=== PATIENT | male | born 1960 | race Hispanic/Latino ===

== ENCOUNTER 2020-12-05 09:43 | Inpatient (IN) | payer OTHER ==
[2020-12-05 10:16] LABS: #Eosinphils 0.1 thou/uL (0.0-0.7); #Lymphocytes 1.3 thou/uL (1.20-3.40); #Monocytes 0.5 thou/uL (0.11-0.59); #Neutrophils 5.2 thou/uL (1.40-6.50); %Basophils 0.2 % (0.0-1.0); %Eosinophils 1.3 % (0.0-10.0); %Lymphocytes 18.2 % (21.0-51.0); %Monocytes 6.3 % (0.0-10.0); Hemoglobin 15.5 g/dL (14.0-18.0); Mean Corpuscular HGB CONC 34.9 g/dL (32.0-36.0); Mean Corpuscular Hemoglobin 33.5 pg (27.0-31.0); Mean Platelet Volume 8.2 fL (7.4-10.4); Platelet Count 164 thou/uL (130-400); RBC Distribution Width 12.1 % (11.5-14.5); Red Blood Cell (RBC) Count 4.62 mill/uL (4.70-6.10); White Blood Cell (WBC) Count 7.1 thou/uL (4.8-10.8)
[2020-12-05] MEDS ORDERED: Aspirin Chewable 81 MG TAB ONE (10:19)
[2020-12-05] MEDS ORDERED: Nitroglycerin 2% Ointment 1 INCH/1 GM Packet ONE (10:19)
[2020-12-05 10:36] LABS: ALT (SGPT) 12 U/L (8-55); AST (SGOT) 18 U/L (5-34); Albumin 4.1 g/dL (3.4-4.8); Alkaline Phosphatase 97 U/L (40-110); Anion Gap 11 mmol/L (10-20); BUN (Urea Nitrogen) 17 mg/dL (8.4-25.7); CK (CPK) 170 U/L (30-200); Calc. Creatinine Clearance 0 mL/min (70-130); Calcium 9.1 mg/dL (7.8-10.44); Carbon Dioxide 26 mmol/L (23-31); Chloride 107 mmol/L (98-107); Globulin 2.3 g/dL (2.4-3.5); Glucose 106 mg/dL (80-115); Lipase 11 U/L (8-78); Potassium 3.8 mmol/L (3.5-5.1); Protein, Total 6.4 g/dL (5.8-8.1); Sodium 140 mmol/L (136-145)
[2020-12-05 10:58] LABS: CKMB 1.8 ng/mL (0-6.6)
[2020-12-05] MEDS ORDERED: Enoxaparin Sodium 40 MG/0.4 ML SYRINGE ONE (11:47)
[2020-12-05] MEDS ORDERED: Enoxaparin Sodium 30 MG/0.3 ML SYRINGE ONE (11:47)
[2020-12-05] MEDS ORDERED: hydrALAZINE 20 MG/ML VIAL SLOW IVP PRN (15:42)
[2020-12-05 15:46] LABS: Troponin I 1.345 ng/mL (< 0.028)
[2020-12-05] MEDS ORDERED: Amlodipine 5 MG TAB PO SCH (17:00)
[2020-12-05] MEDS ORDERED: FLU VACC QS2021-22(6MOS UP)/PF 60 MCG/0.5 ML SYRINGE IM ONE (17:00)
[2020-12-05] MEDS ORDERED: Communication Order-Pharmacy FS SCH (17:00)
[2020-12-05] MEDS: Nitroglycerin 2% Ointment 1 INCH/1 GM Packet TOP SCH (20:19)
[2020-12-05 20:20] LABS: SARS-CoV-2 PCR by NAA Not Detected (NotDetected)
[2020-12-05] MEDS ORDERED: Enoxaparin Sodium 80 MG/0.8 ML SYRINGE SC SCH (21:00)
[2020-12-05] MEDS ORDERED: Enoxaparin Sodium 60 MG/0.6 ML SYRINGE SC SCH (21:00)
[2020-12-06] MEDS ORDERED: Sodium Chloride 0.9% 1,000 ML IV SCH (06:00)
[2020-12-06 06:02] LABS: Cardiac Risk 4.7 (Less than 4.5)
[2020-12-06] MEDS ORDERED: Midazolam HCl 2 mg/2 ml Vial ONE (08:38)
[2020-12-06] MEDS ORDERED: Fentanyl 100 MCG/2 ML VIAL ONE (08:38)
[2020-12-06] MEDS ORDERED: Aspirin 325 mg Enteric Coated Tablet PO SCH (09:00)
[2020-12-06] MEDS ORDERED: Heparin 25,000 units/D5W 500 ML ONE (09:09)
[2020-12-06] MEDS ORDERED: Heparin 10,000 UNITS/ 10 ML VIAL ONE (09:09)
[2020-12-06] MEDS ORDERED: Albumin 5% 500 ML ONE (09:46)
[2020-12-06] MEDS ORDERED: Nitroglycerin 2% Ointment 1 INCH/1 GM Packet ONE (09:51)
[2020-12-06] MEDS ORDERED: Midazolam HCl 5 mg/5 ml Vial ONE (10:11)
[2020-12-06] MEDS ORDERED: Fentanyl 250 MCG/5 ML VIAL ONE (10:11)
[2020-12-06] MEDS ORDERED: Dexmedetomidine 200 MCG/2 ML VIAL ONE (10:11)
[2020-12-06] MEDS ORDERED: Heparin 10,000 UNITS/1 ML VIAL 30,000 UNITS in Sodium Chloride 0.9% 1,000 ML FS SCH (10:15)
[2020-12-06] MEDS ORDERED: Heparin 30,000 units/30 ml VIAL ONE (10:52)
[2020-12-06] MEDS ORDERED: Papaverine 60 MG/2 ML VIAL ONE (10:52)
[2020-12-06] MEDS ORDERED: Mannitol 12.5 GM/50 ML ONE (10:52)
[2020-12-06] MEDS ORDERED: Nitroglycerin 50 MG/250 ML BOT ONE (10:52)
[2020-12-06] MEDS ORDERED: Ondansetron PF 4 MG/2 ML Vial ONE (10:52)
[2020-12-06] MEDS ORDERED: Protamine Sulfate 250 MG/25 ML VIAL ONE (10:52)
[2020-12-06] MEDS ORDERED: PROPOFOL 200 MG/20 ML VIAL ONE (10:52)
[2020-12-06] MEDS ORDERED: Norepinephrine 4 MG/4 ML VIAL ONE (10:52)
[2020-12-06] MEDS ORDERED: Magnesium Sulfate 1 GM/2 ML VIAL ONE (10:52)
[2020-12-06] MEDS ORDERED: Potassium Chloride 60 MEQ/30 ML VIAL ONE (10:52)
[2020-12-06] MEDS ORDERED: Calcium Chloride 1 GM/10 ML Abboject SYRINGE ONE (10:52)
[2020-12-06] MEDS ORDERED: Lidocaine 1% PF 5 ML VIAL ONE (10:52)
[2020-12-06] MEDS ORDERED: Thrombin 5000 UNITS/5 ML VIAL ONE (10:52)
[2020-12-06] MEDS ORDERED: Dexamethasone 20 MG/5 ML VIAL ONE (10:52)
[2020-12-06] MEDS ORDERED: Glycopyrrolate 0.2 MG/ML 5 ML SYRINGE ONE (10:52)
[2020-12-06] MEDS ORDERED: Heparin 5,000 UNITS/ML VIAL ONE (10:52)
[2020-12-06] MEDS ORDERED: Lidocaine 2% PF 100 mg/5 ml Syringe ONE (10:52)
[2020-12-06] MEDS ORDERED: Cardioplegic Soln 1,000 ML BAG ONE (10:52)
[2020-12-06] MEDS ORDERED: Aminocaproic Acid 5 GM/20 ML VIAL ONE (10:52)
[2020-12-06] MEDS ORDERED: Sodium Bicarb 50 MEQ/50 ML Abboject 8.4% SYRINGE ONE (10:52)
[2020-12-06] MEDS ORDERED: Vecuronium 10 MG VIAL ONE (10:52)
[2020-12-06] MEDS: Nitroglycerin 2% Ointment 1 INCH/1 GM Packet TOP SCH (12:29)
[2020-12-06] MEDS ORDERED: HYDROcodone/Acetaminophen 5/325 mg Tablet PO PRN (14:26)
[2020-12-06] MEDS ORDERED: Hetastarch 6% 500 ML 500 ML IVPB PRN (14:26)
[2020-12-06] MEDS ORDERED: niCARdipine 25 MG in Sodium Chloride 0.9% 250 ML 250 ML IVPB PRN (14:26)
[2020-12-06] MEDS ORDERED: Nitroglycerin 50 MG/250 ML BOT 250 ML IVPB PRN (14:26)
[2020-12-06] MEDS ORDERED: Post-Op Insulin Drip Protocol IVPB ONE (14:26)
[2020-12-06] MEDS ORDERED: DOPamine 400 MG/D5W 250 ML 250 ML IVPB PRN (14:26)
[2020-12-06] MEDS ORDERED: hydrALAZINE 20 MG/ML VIAL SLOW IVP PRN (14:26)
[2020-12-06] MEDS ORDERED: Bisacodyl 10 MG SUPP PR PRN (14:26)
[2020-12-06] MEDS ORDERED: Morphine 2 MG/ML VIAL SLOW IVP PRN (14:26)
[2020-12-06] MEDS ORDERED: Bisacodyl 5 MG TAB PO PRN (14:26)
[2020-12-06] MEDS ORDERED: Mag-Al 1200 mg/1200 mg/30 ML UDCUP PO PRN (14:26)
[2020-12-06] MEDS ORDERED: Potassium Chloride 20 MEQ/100 ML PREMIX BAG IVPB PRN (14:26)
[2020-12-06] MEDS ORDERED: Ondansetron PF 4 MG/2 ML Vial IVP PRN (14:26)
[2020-12-06] MEDS ORDERED: Guaifenesin DM 100-10/5 ML UDCUP PO PRN (14:26)
[2020-12-06] MEDS ORDERED: Acetaminophen 325 MG TAB PO PRN (14:26)
[2020-12-06] MEDS ORDERED: CEFAZOLIN 1 GM VIAL ONE (14:44)
[2020-12-06] MEDS ORDERED: SUGAMMADEX SODIUM 200 MG/2 ML VIAL ONE (15:11)
[2020-12-06 16:12] LABS: #Lymphocytes 0.6 thou/uL (1.20-3.40); #Monocytes 0.3 thou/uL (0.11-0.59); #Neutrophils 10.6 thou/uL (1.40-6.50); %Basophils 0.2 % (0.0-1.0); %Eosinophils 0.4 % (0.0-10.0); %Lymphocytes 5.4 % (21.0-51.0); %Monocytes 2.2 % (0.0-10.0); %Neutrophils 91.8 % (42.0-75.0); Hemoglobin 13.3 g/dL (14.0-18.0); Mean Corpuscular HGB CONC 34.6 g/dL (32.0-36.0); Mean Corpuscular Hemoglobin 33.5 pg (27.0-31.0); Mean Corpuscular Volume 96.9 fL (78.0-98.0); Mean Platelet Volume 8.7 fL (7.4-10.4); Platelet Count 123 thou/uL (130-400); RBC Distribution Width 12.3 % (11.5-14.5); Red Blood Cell (RBC) Count 3.98 mill/uL (4.70-6.10); White Blood Cell (WBC) Count 11.6 thou/uL (4.8-10.8)
[2020-12-06] MEDS ORDERED: Dextrose 5% in Water 1,000 ML IV PRN (16:15)
[2020-12-06] MEDS ORDERED: Dextrose 50% Abboject 50 ML SYRINGE SLOW IVP PRN (16:15)
[2020-12-06] MEDS ORDERED: HUMULIN R 100 UNITS in Sodium Chloride 0.9% 100 ML IVPB SCH (16:15)
[2020-12-06] MEDS ORDERED: Lantus 1000 UNITS/10 ML VIAL SC PRN (16:15)
[2020-12-06 16:21] LABS: INR-International Normal Ratio 1.2; Prothrombin Time 15.7 sec (12.0-14.7)
[2020-12-06 16:22] LABS: PTT 34.2 sec (22.9-36.1)
[2020-12-06] MEDS: Fentanyl 100 MCG/2 ML VIAL SLOW IVP PRN ×3 (16:23→23:58)
[2020-12-06] MEDS: Lactated Ringer's 1,000 ML IV SCH (16:23)
[2020-12-06] MEDS: Insulin Regular 300 UNITS/3 ML VIAL SC PRN ×2 (16:24→21:14)
[2020-12-06 16:38] LABS: Anion Gap 11 mmol/L (10-20); BUN (Urea Nitrogen) 9 mg/dL (8.4-25.7); Calc. Creatinine Clearance 117 mL/min (70-130); Carbon Dioxide 20 mmol/L (23-31); Chloride 110 mmol/L (98-107); Glucose 161 mg/dL (80-115); Potassium 4.3 mmol/L (3.5-5.1); Sodium 137 mmol/L (136-145)
[2020-12-06] MEDS: Ketorolac Tromethamine 30 MG/ML VIAL IVP SCH ×2 (17:45→23:56)
[2020-12-06 20:15] LABS: Hemoglobin 12.1 g/dL (14.0-18.0)
[2020-12-06 20:25] LABS: Potassium 4.1 mmol/L (3.5-5.1)
[2020-12-06] MEDS ORDERED: Famotidine/PF 20 mg/2ml Vial SLOW IVP SCH (21:00)
[2020-12-06] MEDS: Atorvastatin Calcium 40 MG TAB PO SCH (23:58)
[2020-12-07] MEDS: Insulin Regular 300 UNITS/3 ML VIAL SC PRN (00:54)
[2020-12-07] MEDS: HYDROcodone/Acetaminophen 5/325 mg Tablet PO PRN ×4 (01:58→20:56)
[2020-12-07] MEDS: Lactated Ringer's 1,000 ML IV SCH (04:16)
[2020-12-07 05:11] LABS: Anion Gap 12 mmol/L (10-20); BUN (Urea Nitrogen) 11 mg/dL (8.4-25.7); Calc. Creatinine Clearance 112 mL/min (70-130); Calcium 8.3 mg/dL (7.8-10.44); Carbon Dioxide 24 mmol/L (23-31); Chloride 106 mmol/L (98-107); Glucose 114 mg/dL (80-115); Sodium 138 mmol/L (136-145)
[2020-12-07] MEDS: Ketorolac Tromethamine 30 MG/ML VIAL IVP SCH ×4 (05:11→23:31)
[2020-12-07] MEDS ORDERED: Nitroglycerin 0.4 MG TAB (25 Tab Bottle) SL PRN (07:05)
[2020-12-07] MEDS ORDERED: Milk Of Magnesia 30 ML UDCUP PO PRN (07:05)
[2020-12-07] MEDS: Famotidine 20 MG TAB PO SCH ×2 (08:05→20:57)
[2020-12-07] MEDS: Aspirin 325 MG TAB PO SCH (08:05)
[2020-12-07] MEDS: Polyethylene Glycol 3350 17 GM Packet PO SCH (08:06)
[2020-12-07] MEDS ORDERED: Polyethylene Glycol 3350 17 GM Packet PO SCH (09:00)
[2020-12-07] MEDS ORDERED: Albumin 5% 250 ML ONE (11:11)
[2020-12-07] MEDS ORDERED: CEFAZOLIN 2 GM in Sodium Chloride 0.9% 100 ML IVPB SCH (11:30)
[2020-12-07] MEDS ORDERED: CEFAZOLIN 2 GM in Premix Bag 1 BAG IVPB SCH (11:30)
[2020-12-07] MEDS: Atorvastatin Calcium 40 MG TAB PO SCH (20:57)
[2020-12-08] MEDS: Fentanyl 100 MCG/2 ML VIAL SLOW IVP PRN ×2 (02:25→09:53)
[2020-12-08 04:05] LABS: #Lymphocytes 0.9 thou/uL (1.20-3.40); #Monocytes 0.7 thou/uL (0.11-0.59); #Neutrophils 7.2 thou/uL (1.40-6.50); %Eosinophils 0.1 % (0.0-10.0); %Lymphocytes 10.3 % (21.0-51.0); %Monocytes 8.3 % (0.0-10.0); %Neutrophils 81.3 % (42.0-75.0); Hemoglobin 9.8 g/dL (14.0-18.0); Mean Corpuscular HGB CONC 35.5 g/dL (32.0-36.0); Mean Corpuscular Hemoglobin 34.4 pg (27.0-31.0); Mean Corpuscular Volume 96.9 fL (78.0-98.0); Mean Platelet Volume 8.2 fL (7.4-10.4); Platelet Count 105 thou/uL (130-400); RBC Distribution Width 12.1 % (11.5-14.5); Red Blood Cell (RBC) Count 2.84 mill/uL (4.70-6.10); White Blood Cell (WBC) Count 8.9 thou/uL (4.8-10.8)
[2020-12-08 04:37] VITALS: BMI 26.4
[2020-12-08] MEDS: Ketorolac Tromethamine 30 MG/ML VIAL IVP SCH ×3 (05:41→17:28)
[2020-12-08] MEDS: Furosemide 40 MG TAB PO SCH (09:45)
[2020-12-08] MEDS: Famotidine 20 MG TAB PO SCH ×2 (09:45→21:07)
[2020-12-08] MEDS: Aspirin 325 MG TAB PO SCH (09:45)
[2020-12-08] MEDS: Polyethylene Glycol 3350 17 GM Packet PO SCH (09:45)
[2020-12-08] MEDS: Zolpidem Tartrate 5 MG TAB PO PRN (21:07)
[2020-12-08] MEDS: Atorvastatin Calcium 40 MG TAB PO SCH (21:07)
[2020-12-09] MEDS: Ketorolac Tromethamine 30 MG/ML VIAL IVP SCH ×3 (00:31→06:20)
[2020-12-09 04:54] LABS: #Eosinphils 0.1 thou/uL (0.0-0.7); #Lymphocytes 1.2 thou/uL (1.20-3.40); #Monocytes 0.7 thou/uL (0.11-0.59); %Eosinophils 1.1 % (0.0-10.0); %Lymphocytes 16.6 % (21.0-51.0); %Monocytes 9.9 % (0.0-10.0); %Neutrophils 72.4 % (42.0-75.0); Hemoglobin 9.2 g/dL (14.0-18.0); Mean Corpuscular HGB CONC 35.2 g/dL (32.0-36.0); Mean Corpuscular Hemoglobin 34.3 pg (27.0-31.0); Mean Corpuscular Volume 97.4 fL (78.0-98.0); Mean Platelet Volume 8.2 fL (7.4-10.4); Platelet Count 111 thou/uL (130-400); White Blood Cell (WBC) Count 6.9 thou/uL (4.8-10.8)
[2020-12-09] MEDS: Aspirin 325 MG TAB PO SCH (09:00)
[2020-12-09] MEDS: Furosemide 40 MG TAB PO SCH (09:01)
[2020-12-09] MEDS: Famotidine 20 MG TAB PO SCH ×2 (09:01→20:33)
[2020-12-09] MEDS: Polyethylene Glycol 3350 17 GM Packet PO SCH (09:01)
[2020-12-09] MEDS: Atorvastatin Calcium 40 MG TAB PO SCH (20:33)
[2020-12-09] MEDS: Zolpidem Tartrate 5 MG TAB PO PRN (20:34)
[2020-12-10] MEDS: Furosemide 40 MG TAB PO SCH (08:49)
[2020-12-10] MEDS: Famotidine 20 MG TAB PO SCH (08:50)
[2020-12-10] MEDS: Aspirin 325 MG TAB PO SCH (08:50)
[2020-12-10] MEDS: Polyethylene Glycol 3350 17 GM Packet PO SCH (08:51)
[2020-12-10 12:05] VITALS: BP 110/66; TEMP 98.6
[2020-12-20 11:56] LABS: Actual Bicarbonate (HCO3a) 21.6 mEq/L (22-28); Analyzer IN Cardio OR; Base Excess (BEa) -4.1 mEq/L (-2.0 to +3.0); CO2 Tension 41.7 mmHg (35.0-45.0); Calcium, Ionized (arterial) 1.09 mmol/L (1.12-1.30); Carboxyhemoglobin (COHb) 0.3 gm% (0.0-3.0); Hemoglobin (Hb) 12.4 g/dL (14.0-18.0); O2 Tension (PaO2), arterial 361.3 mmHg (> 80.0); Potassium - ABG Lab 3.72 mmol/L (3.70-5.30); pH, Arterial 7.33 (7.35-7.45)
[2020-12-20 11:56] LABS: Actual Bicarbonate (HCO3a) 23.4 mEq/L (22-28); Analyzer IN Cardio OR; Base Excess (BEa) -0.8 mEq/L (-2.0 to +3.0); CO2 Tension 37.1 mmHg (35.0-45.0); Calcium, Ionized (arterial) 1.22 mmol/L (1.12-1.30); Carboxyhemoglobin (COHb) 0.1 gm% (0.0-3.0); Hemoglobin (Hb) 10.6 g/dL (14.0-18.0); O2 Tension (PaO2), arterial 195.1 mmHg (> 80.0); Potassium - ABG Lab 3.87 mmol/L (3.70-5.30); pH, Arterial 7.42 (7.35-7.45)
[2020-12-20 11:57] LABS: Actual Bicarbonate (HCO3a) 23.7 mEq/L (22-28); Analyzer IN Cardio OR; Base Excess (BEa) -0.3 mEq/L (-2.0 to +3.0); CO2 Tension 36.3 mmHg (35.0-45.0); Calcium, Ionized (arterial) 0.98 mmol/L (1.12-1.30); Carboxyhemoglobin (COHb) 0.1 gm% (0.0-3.0); Hemoglobin (Hb) 9.8 g/dL (14.0-18.0); O2 Tension (PaO2), arterial 445.2 mmHg (> 80.0); Potassium - ABG Lab 4.26 mmol/L (3.70-5.30); pH, Arterial 7.43 (7.35-7.45)
[2020-12-20 11:57] LABS: Actual Bicarbonate (HCO3a) 20.8 mEq/L (22-28); Analyzer IN Cardio OR; CO2 Tension 33.7 mmHg (35.0-45.0); Calcium, Ionized (arterial) 1.07 mmol/L (1.12-1.30); Carboxyhemoglobin (COHb) 0.6 gm% (0.0-3.0); Hemoglobin (Hb) 13.2 g/dL (14.0-18.0); O2 Tension (PaO2), arterial 297.5 mmHg (> 80.0); Potassium - ABG Lab 3.77 mmol/L (3.70-5.30); pH, Arterial 7.41 (7.35-7.45)
[2020-12-20 11:57] LABS: Actual Bicarbonate (HCO3a) 23.4 mEq/L (22-28); Analyzer IN Cardio OR; Base Excess (BEa) -0.7 mEq/L (-2.0 to +3.0); CO2 Tension 36.6 mmHg (35.0-45.0); Calcium, Ionized (arterial) 0.97 mmol/L (1.12-1.30); Carboxyhemoglobin (COHb) 0.3 gm% (0.0-3.0); Hemoglobin (Hb) 10.9 g/dL (14.0-18.0); O2 Tension (PaO2), arterial 375.1 mmHg (> 80.0); pH, Arterial 7.42 (7.35-7.45)
[2020-12-20 11:58] LABS: Actual Bicarbonate (HCO3a) 25.7 mEq/L (22-28); Analyzer IN Cardio OR; Base Excess (BEa) 0.9 mEq/L (-2.0 to +3.0); CO2 Tension 41.4 mmHg (35.0-45.0); Carboxyhemoglobin (COHb) 0.5 gm% (0.0-3.0); Hemoglobin (Hb) 14.2 g/dL (14.0-18.0); O2 Tension (PaO2), arterial 564.8 mmHg (> 80.0); Potassium - ABG Lab 3.71 mmol/L (3.70-5.30); pH, Arterial 7.41 (7.35-7.45)
[2020-12-20 11:59] LABS: Puncture Site Arterial Line
[2020-12-20 11:59] LABS: Puncture Site Arterial Line
[2020-12-20 12:00] LABS: Puncture Site Arterial Line
[2020-12-20 12:00] LABS: Puncture Site Arterial Line
[2020-12-20 12:01] LABS: Puncture Site Arterial Line
[2020-12-20 12:01] LABS: Puncture Site Arterial Line
== END 2020-12-10 11:35 | disposition home or self-care (01) | DRG 234 ==
LOC: ERS 09:43 → ERHOLD 11:43 → 2NO 14:50 → CCU 12-06 09:50 → 2NO 12-07 12:42
PROVIDERS: ADMIT Internal Medicine; ATTEND Family Medicine
PROC: 021209W Bypass Coronary Artery, Three Arteries from Aorta with Autologous Venous Tissue, Open Approach (ICD-10-PCS; principal; 2020-12-06)
PROC: 4A023N7 Measurement of Cardiac Sampling and Pressure, Left Heart, Percutaneous Approach (ICD-10-PCS; 2020-12-06)
PROC: 02100Z9 Bypass Coronary Artery, One Artery from Left Internal Mammary, Open Approach (ICD-10-PCS; 2020-12-06)
PROC: 0W380ZZ Control Bleeding in Chest Wall, Open Approach (ICD-10-PCS; 2020-12-06)
PROC: B2111ZZ Fluoroscopy of Multiple Coronary Arteries using Low Osmolar Contrast (ICD-10-PCS; 2020-12-06)
PROC: B2151ZZ Fluoroscopy of Left Heart using Low Osmolar Contrast (ICD-10-PCS; 2020-12-06)
PROC: B2131ZZ Fluoroscopy of Multiple Coronary Artery Bypass Grafts using Low Osmolar Contrast (ICD-10-PCS; 2020-12-06)
PROC: 5A1221Z Performance of Cardiac Output, Continuous (ICD-10-PCS; 2020-12-06)
PROC: 06BQ0ZZ Excision of Left Saphenous Vein, Open Approach (ICD-10-PCS; 2020-12-06)
DX: I21.4 Non-ST elevation (NSTEMI) myocardial infarction (principal); Z20.822 Contact with and (suspected) exposure to COVID-19; I25.10 Atherosclerotic heart disease of native coronary artery without angina pectoris; K21.9 Gastro-esophageal reflux disease without esophagitis; I10 Essential (primary) hypertension; F17.210 Nicotine dependence, cigarettes, uncomplicated; E78.00 Pure hypercholesterolemia, unspecified; E78.5 Hyperlipidemia, unspecified; Z79.899 Other long term (current) drug therapy; Z79.1 Long term (current) use of non-steroidal anti-inflammatories (NSAID); Z90.49 Acquired absence of other specified parts of digestive tract; Z82.49 Family history of ischemic heart disease and other diseases of the circulatory system
CPT/HCPCS: 36415; 36416; 36430; 71045; 80048; 80053; 80061; 82550; 82553; 82805; 83690; 83880; 84484; 85025; 85379; 85610; 85730; 86850; 86900; 86901; 93005; 93010; 93459; 93798; 94760; 96372; 97139; 99152; 99153; J0360; J0690; J1100; J1644; J1650; J1815; J1885; J2001; J2150; J2250; J2405; J2440; J2704; J2720; J3010; J3370; J3475; J3480; J7050; J7120; P9045; S0017; S0028; U0003; U0005

== ENCOUNTER 2022-06-23 13:01 | Emergency (ER) | payer OTHER, SELFPAY ==
[2022-06-23] MEDS ORDERED: Nitroglycerin 0.4 MG TAB 1 EACH ONE ×2 (13:16→13:17)
[2022-06-23] MEDS ORDERED: Aspirin Chewable 81 MG TAB ONE (13:16)
[2022-06-23 13:22] LABS: #Lymphocytes 1.1 thou/uL (1.20-3.40); #Monocytes 0.6 thou/uL (0.11-0.59); #Neutrophils 8.5 thou/uL (1.40-6.50); %Eosinophils 0.2 % (0.0-10.0); %Lymphocytes 10.7 % (21.0-51.0); %Monocytes 5.5 % (0.0-10.0); %Neutrophils 83.6 % (42.0-75.0); Hemoglobin 15.4 g/dL (14.0-18.0); Mean Corpuscular HGB CONC 33.2 g/dL (32.0-36.0); Mean Corpuscular Volume 96.5 fl (78.0-98.0); Mean Platelet Volume 8.4 fL (7.4-10.4); Platelet Count 171 10x3/uL (130-400); RBC Distribution Width 12.6 % (11.5-14.5); Red Blood Cell (RBC) Count 4.81 mill/uL (4.70-6.10); White Blood Cell (WBC) Count 10.2 10x3/uL (4.8-10.8)
[2022-06-23 13:44] LABS: ALT (SGPT) 15 U/L (8-55); AST (SGOT) 25 U/L (5-34); Albumin 4.6 g/dL (3.4-4.8); Alkaline Phosphatase 134 U/L (40-110); Anion Gap 16 mmol/L (10-20); BUN (Urea Nitrogen) 14 mg/dL (8.4-25.7); Bilirubin, Total 0.9 mg/dL (0.2-1.2); Calc. Creatinine Clearance 0 mL/min (70-130); Calcium 9.1 mg/dL (7.8-10.44); Carbon Dioxide 24 mmol/L (23-31); Chloride 97 mmol/L (98-107); Estimated GFR 99; Globulin 2.7 g/dL (2.4-3.5); Glucose 131 mg/dL (80-115); Potassium 3.7 mmol/L (3.5-5.1); Protein, Total 7.3 g/dL (5.8-8.1); Sodium 133 mmol/L (136-145)
== END 2022-06-23 17:45 | disposition home or self-care (01) ==
LOC: ERS 13:01
DX: R07.89 Other chest pain (principal); I10 Essential (primary) hypertension; F17.210 Nicotine dependence, cigarettes, uncomplicated
CPT/HCPCS: 36415; 71045; 80053; 83880; 84484; 85025; 93005

== ENCOUNTER 2022-07-04 07:33 | Outpatient (CLI) | payer OTHER ==
[2022-07-04 08:25] LABS: #Eosinphils 0.1 10x3/uL (0.0-0.5); #Monocytes 0.5 10x3/uL (0.0-1.1); #Neutrophils 3.8 10x3/uL (1.5-8.4); %Basophils 0.5 % (0.0-2.0); %Eosinophils 1.8 % (0.0-6.0); %Lymphocytes 22.6 % (18.0-47.0); %Monocytes 8.1 % (0.0-10.0); %Neutrophils 66.8 % (40.0-75.0); Hemoglobin 14.3 g/dL (13.5-17.5); Mean Corpuscular HGB CONC 34.1 g/dL (32.0-36.0); Mean Corpuscular Hemoglobin 31.4 pg (27.0-33.0); Mean Corpuscular Volume 91.9 fl (81.2-95.1); Mean Platelet Volume 10.3 fl (7.4-10.4); Platelet Count 175 10x3/uL (150-450); Red Blood Cell (RBC) Count 4.56 10x6/uL (4.32-5.72); White Blood Cell (WBC) Count 5.7 10x3/uL (3.5-10.5)
[2022-07-04 08:40] LABS: Anion Gap 13 mmol/L (10-20); BUN (Urea Nitrogen) 17 mg/dL (8.4-25.7); Calc. Creatinine Clearance 0 mL/min (70-130); Calcium 8.7 mg/dL (7.8-10.44); Carbon Dioxide 24 mmol/L (23-31); Chloride 107 mmol/L (98-107); Estimated GFR 101; Glucose 109 mg/dL (80-115); Potassium 4.2 mmol/L (3.5-5.1); Sodium 140 mmol/L (136-145)
== END 2022-07-04 07:34 | disposition home or self-care (01) ==
LOC: LABBT 07:33
PROVIDERS: ATTEND Internal Medicine Cardiovascular Disease
DX: Z01.812 Encounter for preprocedural laboratory examination (principal); I25.10 Atherosclerotic heart disease of native coronary artery without angina pectoris
CPT/HCPCS: 80048; 85025

== ENCOUNTER 2022-07-07 06:10 | Observation (INO) | payer OTHER ==
[2022-07-07] MEDS ORDERED: Heparin 10,000 UNITS/ 10 ML VIAL ONE ×2 (06:14→10:22)
[2022-07-07] MEDS ORDERED: Midazolam HCl 2 mg/2 ml Vial ONE ×2 (06:14→08:09)
[2022-07-07] MEDS ORDERED: fentaNYL 50 mcg/mL 1 mL Vial ONE ×2 (06:14→08:09)
[2022-07-07] MEDS ORDERED: Lidocaine 1% (PF) 30 ML VIAL ONE (06:14)
[2022-07-07 08:03] LABS: Cardiac Risk 2.7 (Less than 4.5)
[2022-07-07] MEDS ORDERED: Verapamil 5 MG/2 ML VIAL ONE (08:32)
[2022-07-07] MEDS ORDERED: Nitroglycerin 50 MG/250 ML BOT 250 ML ONE (08:32)
[2022-07-07] MEDS ORDERED: Metoprolol Tartrate 5 MG/5 ML VIAL ONE (08:36)
[2022-07-07] MEDS ORDERED: Iopamidol 370 76% 100 ML VIAL ONE (08:50)
[2022-07-07] MEDS ORDERED: Clopidogrel Bisulfate 300 MG TAB ONE (10:35)
[2022-07-07] MEDS ORDERED: Sodium Chloride 0.9% 1,000 ML IV SCH ×2 (11:45→18:30)
[2022-07-07] MEDS ORDERED: Amlodipine 5 MG TAB ONE (17:00)
[2022-07-07] MEDS ORDERED: Amlodipine 5 MG TAB PO SCH (17:30)
[2022-07-07 18:20] VITALS: BMI 266287.8
[2022-07-07] MEDS ORDERED: Atorvastatin Calcium 40 MG TAB PO SCH (21:00)
[2022-07-08 08:23] VITALS: BP 118/69; TEMP 97.9
[2022-07-08] MEDS ORDERED: Amlodipine 5 MG TAB PO SCH (09:00)
[2022-07-08] MEDS ORDERED: Aspirin 325 MG TAB PO SCH (09:00)
[2022-07-08] MEDS ORDERED: Clopidogrel Bisulfate 75 MG TAB PO SCH (09:00)
== END 2022-07-08 11:39 | disposition home or self-care (01) ==
LOC: SDC 06:10 → 2NO 10:36
PROVIDERS: ADMIT Internal Medicine Cardiovascular Disease; ATTEND Internal Medicine Cardiovascular Disease
PROC: 02703ZZ Dilation of Coronary Artery, One Artery, Percutaneous Approach (ICD-10-PCS; principal; 2022-07-07)
PROC: 4A023N7 Measurement of Cardiac Sampling and Pressure, Left Heart, Percutaneous Approach (ICD-10-PCS; 2022-07-07)
PROC: B2111ZZ Fluoroscopy of Multiple Coronary Arteries using Low Osmolar Contrast (ICD-10-PCS; 2022-07-07)
PROC: B2131ZZ Fluoroscopy of Multiple Coronary Artery Bypass Grafts using Low Osmolar Contrast (ICD-10-PCS; 2022-07-07)
PROC: B2181ZZ Fluoroscopy of Left Internal Mammary Bypass Graft using Low Osmolar Contrast (ICD-10-PCS; 2022-07-07)
DX: I25.708 Atherosclerosis of coronary artery bypass graft(s), unspecified, with other forms of angina pectoris (principal); I25.118 Atherosclerotic heart disease of native coronary artery with other forms of angina pectoris; I25.82 Chronic total occlusion of coronary artery; I10 Essential (primary) hypertension; E78.00 Pure hypercholesterolemia, unspecified; K21.9 Gastro-esophageal reflux disease without esophagitis; R00.1 Bradycardia, unspecified; F10.10 Alcohol abuse, uncomplicated; I45.10 Unspecified right bundle-branch block; Z87.891 Personal history of nicotine dependence; Z79.82 Long term (current) use of aspirin; Z79.899 Other long term (current) drug therapy
CPT/HCPCS: 80061; 85347; 92920; 93455; 93567; 99152; 99153; C1725; C1769; C1874; C1887; C1894; G0378; J1644; J2001; J2250; J3010; J7050